=== PATIENT | male | born 1965 | race Caucasian/White ===

== ENCOUNTER → 2016-10-01 | Outpatient (CLI) | payer BC ==
[~2016-10-01] MED LIST: B-COCAP2 PO; FRRS300 PO; GADAVIST IV PRN; MULT-506 PO
--- NOTE | 2016-10-01 18:46 | DIAGNOSTIC IMAGING REPORT ---
Brain MRI WITH AND WITHOUT CONTRAST HISTORY: Ataxia. Dizziness. Double vision. HX OF EVERETT DELCID SYNDROME TECHNIQUE: Multiplanar multisequence MRI of the brain was performed both before and after the intravenous administration of contrast. COMPARISON STUDY: None. FINDINGS: There are no areas of restricted diffusion to suggest acute infarction. The midline structures are intact. The paranasal sinuses are clear. The mastoid air cells are clear. The ventricles and sulci are within normal limits for age. There is no mass, hematoma, midline shift. The major vascular flow-voids at the skull base are well maintained. Postcontrast sequences show no areas of abnormal enhancement. A few scattered punctate foci of T2 hyperintensity within the white matter of the supratentorial brain favor minimal microvascular ischemic change. IMPRESSION: No acute intracranial abnormality. Electronically signed by: Crow Rivero M.D. 10/01/2016 6:45 PM Dictated Date/Time: 10/01/2016 6:39 PM
== END | disposition home or self-care (01) ==
LOC: C.MRI 17:49
PROVIDERS: ATTEND Family Medicine
DX: R53.83 Other fatigue (principal)